=== PATIENT | male | born 1950 ===

== ENCOUNTER → 2024-01-28 | Outpatient (REF) | payer MEDICARE, BC ==
[2024-01-28 18:40] LABS: TOTAL PROTEIN,RANDOM URINE 59.1 MG/DL (0.0-14.0)
[2024-01-28 18:45] LABS: CREATININE,RANDOM URINE 140.2 MG/DL
== END ==
LOC: M LAB REF 16:58
PROVIDERS: ATTEND Internal Medicine Nephrology
DX: N18.4 Chronic kidney disease, stage 4 (severe) (principal)